=== PATIENT | male | born 1975 | race African-American/Black ===

== ENCOUNTER → 2021-07-31 09:13 | Outpatient (CLI) | payer BC, SELFPAY ==
--- NOTE | ~2021-07-31 | XR_ITS ---
EXAMINATION: XR chest 2V EXAM DATE: 07/31/2021 09:32 INDICATION: Cough TECHNIQUE: Frontal and lateral projections of the chest obtained and reviewed. There is no prior farhan dy for comparison. FINDINGS: Moderate amount of patchy bilateral ill-defined airspace disease, most likely COVID 19 pne umonia given appearance and community prevalence. Cardiomediastinal silhouette is normal. There is no pneumothorax suspected. There are no pleural effusions. There are no osseous abnormalities nichole levine IMPRESSION: Moderate bilateral pneumonia, probably COVID 19. Reviewed, dictated and finalized at location [facility]
== END ==
PROVIDERS: PCP Internal Medicine; Visit Provider Internal Medicine
DX: J18.9 Pneumonia, unspecified organism (principal); R05.9 Cough, unspecified
CPT/HCPCS: 71046

== ENCOUNTER 2021-10-20 09:53 | Emergency (ER) | payer BC, SELFPAY ==
[2021-10-20 10:03] VITALS: BP 177/97; PULSE 103; RESP 22; TEMP 36.7; O2SAT 99
--- NOTE | 2021-10-20 10:30 | ED.LOWEXIN ---
HPI - Extremity Injury (Lower) General Chief Complaint: Extremity Injury, Lower Stated Complaint: bleeding to LLE Time Seen by Provider: 10/20/21 09:59 History of Present Illness HPI Narrative: Patient is a 46-year-old male with a history of hypertension, and diabetes who presents with left lower extremity since this morning. Patient states he scratched a scab on his left lower extremity, and the area immediately began to bleed out. He states blood covered the bathroom floor, and the bleeding did not relent until he came to the emergency department. He has been ambulatory since the incident. He denies any blood thinner use. Denies any loss of consciousness or lightheadedness. He states this happened once 10 years ago on his right lower extremity that required a suture. Coretta PRECIADO as of 2 years ago. Related Data Allergies Allergy/AdvReac Type Severity Reaction Status Date / Time No Known Allergies Allergy Verified 10/20/21 10:07 Review of Systems Review of Systems: Gen.: Denies fevers or chills Eyes: Denies eye pain or visual change ENT: Denies congestion Respiratory: Denies shortness of breath or cough CV: Denies chest pain or palpitations GI: Denies abdominal pain nausea, emesis or diarrhea denies burning, urgency, frequency or hematuria Musculoskeletal: Denies back pain or muscle pain Neuro: Denies numbness, tingling, weakness or focal weakness Skin: Reports injury to left lower extremity. Denies rash Except as documented, all other systems reviewed and negative Exam Narrative: APPEARANCE: Well appearing, no pain in distress, obese Head normocephalic and atraumatic. EYES: PERRLA/EOMI, conjunctivae clear NOSE: No nasal drainage EARS: External ear normal in appearance THROAT: Oropharynx is clear. Mucous membranes are moist. NECK: Supple. No adenopathy, no masses. RESPIRATORY: Airway patent, respirations nonlabored. Clear to auscultation bilaterally, no rales, rhonchi, wheezing. CARDIOVASCULAR: Regular rate and rhythm without murmurs, rubs, or gallops. ABDOMINAL: Normoactive bowel sounds. Soft, nontender, nondistended. No rebound tenderness or guarding. MUSCULOSKELETAL: Extremities are warm and well-perfused. Moves all extremities well. No edema. NEURO: Normal speech. No focal neurologic deficits. SKIN: Patient's left lower extremity has a small tear in the skin lying underneath an opened scab. There is no surrounding erythema and there is no active bleeding. PSYCHIATRIC: Normal affect/mood. Course Vital Signs Vital signs: Vital Signs Temperature 98.0 F 10/20/21 10:03 Pulse Rate 103 H 10/20/21 10:03 Respiratory Rate 22 H 10/20/21 10:03 Blood Pressure 177/97 H 10/20/21 10:03 Pulse Oximetry 99 10/20/21 10:03 Temperature 98.0 F 10/20/21 10:03 Pulse Rate 96 10/20/21 11:35 Respiratory Rate 18 10/20/21 11:35 Blood Pressure 156/80 H 10/20/21 11:35 Pulse Oximetry 100 10/20/21 11:35 Procedures Laceration Laceration 1: Date: 10/20/21 Time: 11:01 Site: lower extremity Side (If applicable): left Description: other (1 cm tear in skin just adjacent to an old scab) Depth: simple, single layer Local Anesthetic: lidocaine 1% Amount of anesthesia used (mL): 2 Pre-repair: wound explored, irrigated and irrigated extensively ====== Skin Level ====== Skin layer closed with: other (ethilon) Size (cm): 3-0 Number of sutures: 1 Technique: simple, interrupted ====== Subcutaneous Layer ====== ====== Muscle Layer ====== ====== Tendon Layer ====== MDM - Extremity Injury (Lower) [facility] Narrative Medical decision making narrative: 46-year-old here with reportedly extensive bleeding from a scab that he scratched off earlier this morning. Patient states this happened in the past, and required a suture for hemostasis. Patient's hemoglobin and hematocrit was stable at 12.3/37.9 and his coagulation s
[2021-10-20 10:58] LABS: Basophils Absolute Auto 0.1 K/mm3 (0.0-0.1); Basophils Percent Auto 0.4 % (0.2-1.2); Eosinophils Absolute Auto 0.4 K/mm3 (0-0.3); Eosinophils Percent Auto 3.1 % (0-4.4); Hematocrit 37.9 % (42.0-52.0); Hemoglobin 12.3 g/dL (14.0-18.0); Immature Granulocyte Absolute 0.04 K/mm3 (0.00-0.031); Immature Granulocyte Percent A 0.3 % (0-0.5); Lymphocytes Absolute Auto 2.73 K/mm3 (0.9-3.2); Lymphocytes Percent Auto 22.2 % (18.3-44.2); Mean Corpuscular HGB Conc 32.5 g/dl (32-36); Mean Corpuscular Hemoglobin 24.5 pg (26-34); Mean Corpuscular Volume 75.5 fl (80-100); Monocytes Absolute Auto 0.7 K/mm3 (0.1-0.6); Monocytes Percent Auto 5.4 % (2.6-8.5); Neutrophils Absolute Auto 8.5 K/mm3 (1.3-6.7); Neutrophils Percent Auto 68.6 % (45.5-73.1); Platelet Count Result 361 k/mm3 (150-375); Red Blood Count 5.02 M/mm3 (4.6-6.20); Red Cell Distribution Width 15.3 % (11.5-14.5); White Blood Count 12.3 K/mm3 (4.5-10.0)
[2021-10-20 11:12] LABS: Prothrombin Time 13.2 Seconds (11.1-14.7)
[2021-10-20 11:35] VITALS: BP 156/80; PULSE 96; RESP 18; O2SAT 100
== END 2021-10-20 11:36 | disposition home or self-care (01) ==
PROVIDERS: Physician Assistant; Emergency Provider Emergency Medicine; PCP Internal Medicine
DX: S81.802A Unspecified open wound, left lower leg, initial encounter (principal); I10 Essential (primary) hypertension; E11.9 Type 2 diabetes mellitus without complications; X58.XXXA Exposure to other specified factors, initial encounter
CPT/HCPCS: 12001; 36415; 85025; 85610; 99282